=== PATIENT | male | born 1995 | race African-American/Black ===

== ENCOUNTER 2020-08-06 17:07 | Emergency (ER) | payer MEDICAID ==
[~2020-08-06] VITALS: Ht 182.9 cm; Wt 143.2 kg
[2020-08-06] MEDS ORDERED: LIDOCAINE 2% VISCOUS 15 ML SOLUTION UDCUP PO ONE (18:15)
[2020-08-06] MEDS ORDERED: ACETAMINOPHEN 500 MG TABLET PO ONE (18:15)
[2020-08-06] MEDS ORDERED: PredniSONE 20 MG TABLET PO ONE (18:15)
[2020-08-06 18:54] VITALS: BP 148/87
== END 2020-08-06 18:56 | disposition home or self-care (01) ==
LOC: EMS 17:07
DX: R21 Rash and other nonspecific skin eruption (principal)
CPT/HCPCS: 99284; J7512